=== PATIENT | female | born 1995 | race Caucasian/White ===

== ENCOUNTER 2020-04-18 20:11 | Emergency (ER) | payer BC ==
[~2020-04-18] VITALS: Ht 165.1 cm; Wt 99.8 kg
[~2020-04-18 20:11] MED LIST: KEFLEX500 MG PO; NORCO 5-325 TA1 EACH PO; PRENATAL
[2020-04-18 20:20] VITALS: BP 145/98
[2020-04-18] MEDS ORDERED: BIRTH CONTROL (20:24)
[2020-04-18] MEDS ORDERED: AUGMENTIN 875-1 EACH PO (20:29)
== END 2020-04-18 20:44 | disposition home or self-care (01) ==
LOC: M.ERS 20:11
DX: S81.831A Puncture wound without foreign body, right lower leg, initial encounter (principal); S80.811A Abrasion, right lower leg, initial encounter; W54.0XXA Bitten by dog, initial encounter; Y93.89 Activity, other specified; Y92.89 Other specified places as the place of occurrence of the external cause; Y99.8 Other external cause status

== ENCOUNTER 2020-05-06 22:43 | Emergency (ER) | payer BC ==
[~2020-05-06] VITALS: Ht 162.6 cm; Wt 83.9 kg
[~2020-05-06 22:43] MED LIST changes: +AUGMENTIN 875-1 EACH PO; +BIRTH CONTROL
[2020-05-06 23:58] LABS: NUCLEATED RBCS 0 /100WBC
[2020-05-07] LABS: ABSOLUTE EOSINOPHILS 0.1 thou/uL (0.0-0.7); ABSOLUTE LYMPHOCYTES 1.7 thou/uL (0.8-5.3); BASOPHILS 0.3 %; EOSINOPHILS 1.7 %
[2020-05-07 00:08] LABS: ABSOLUTE MONOCYTES 0.4 thou/uL (0.0-1.2); ABSOLUTE NEUTROPHILS 3.3 thou/uL (1.6-8.1); HEMATOCRIT 42.6 % (37.0-47.0); HEMOGLOBIN 14.5 gm/dL (12.0-15.0); MCH 30.5 pg (26.0-34.0); MCV 89.7 fL (80.0-100.0); MONOCYTES 7.3 %; MPV 10.4 fl. (7.2-11.1); PLATELET COUNT* 183 thou/uL (150-400); POLYS 59.7 %; RBC 4.75 mil/uL (4.20-5.00); RDW-CV 13.4 % (10.5-14.5); WBC 5.6 thou/uL (4.0-11.0)
[2020-05-07 00:15] LABS: CALCIUM 9.2 mg/dL (8.5-10.1); CREATININE 0.8 mg/dL (0.6-1.3); POTASSIUM 3.7 mmol/L (3.5-5.1)
[2020-05-07 00:17] LABS: PROTIME 10.3 Seconds (9.20-11.50)
[2020-05-07 00:19] LABS: ALBUMIN 3.8 g/dL (3.4-5.0); TOTAL BILIRUBIN 0.2 mg/dL (<0.1-1.0); TOTAL PROTEIN 8.5 g/dL (6.4-8.2)
[2020-05-07 01:17] LABS: URINE BILIRUBIN NEGATIVE (Negative); URINE BLOOD NEGATIVE (Negative); URINE CLARITY CLEAR; URINE COLOR STRAW; URINE GLUCOSE-RANDOM NEGATIVE (Negative); URINE KETONES NEGATIVE (Negative); URINE LEUKOCYTES-REFLEX NEGATIVE (Negative); URINE NITRITE-REFLEX NEGATIVE (Negative); URINE PROTEIN NEGATIVE (Negative); URINE SPECIFIC GRAVITY 1.015 (1.005-1.030); URINE UROBILINOGEN 0.2 E.U./dl (0.2-1.0)
[2020-05-07] MEDS ORDERED: TOPROL XL25 MG PO (02:06)
[2020-05-07 02:09] VITALS: BP 125/70
--- NOTE | 2020-05-07 15:39 | EKG ---
[place] [address] ELECTROCARDIOGRAM REPORT Name: SUBHASH LARES Room: [facility]#: [id number] Admission: 05/06/20 Attend Phys: Discharge: 05/07/20 Date of : 89 Date of Service: 05/06/205 Report #: [id number] THIS REPORT FOR: //name// 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: DUARTE : 1995 Requested By: Valeria Schmidt Order Number: [id number] MD: Shmuel Jorgensen Measurements Intervals [place] Rate: 100 P: 78 TX: 213 QRS: 71 QRSD: 99 T: 60 QT: 346 QTc: 447 Interpretive Statements Sinus tachycardia Borderline prolonged [place] interval Baseline wander in lead(s) II,III,aVR,aVF Compared to ECG 03/04/2010 11:54:19 Sinus rate has increased Electronically Signed On 05-07-2020 15:38:57 CDT by Shmuel Jorgensen [email or web address] <ELECTRONICALLY SIGNED> By: Shmuel Jorgensen MD, MERGED WITH [facility] 05/07/20 [id number] Shmuel Jorgensen MD, MERGED WITH [facility] /EPI
== END 2020-05-07 02:10 | disposition home or self-care (01) ==
LOC: M.ERS 22:43
PROVIDERS: Personal Emergency Response Attendant
DX: R00.2 Palpitations (principal); R53.1 Weakness; R07.89 Other chest pain; Z79.899 Other long term (current) drug therapy

== ENCOUNTER → 2020-06-08 | Outpatient (CLI) | payer BC ==
[~2020-06-08] MED LIST changes: +TOPROL XL25 MG PO
== END ==
LOC: M.LAB 11:49
PROVIDERS: ATTEND Registered Nurse
DX: R00.2 Palpitations (principal)